=== PATIENT | female | born 1975 | race African-American/Black ===

== ENCOUNTER 2016-08-09 22:58 | Emergency (ER) | payer OTHER ==
[~2016-08-09] VITALS: Ht 160 cm; Wt 98.0 kg
[2016-08-09 23:01] VITALS: BP 121/69; PULSE 92; RESP 15; TEMP 97.8; O2SAT 100
[2016-08-10] MEDS ORDERED: NITR1SUB3 SL (00:28)
[2016-08-10] MEDS ORDERED: ASPI1TAB69 PO (00:28)
[2016-08-10 00:32] VITALS: BP 121/67; PULSE 69; RESP 18; TEMP 98; O2SAT 99
[2016-08-10 01:58] LABS: BACTERIA, URINE OCC /hpf; BLOOD, URINE NEG (NEG); COMMENT (UR) CULTURE INDICATED; CULTURE IF INDICATED CULTURE INDICATED; GLUCOSE,URINE NEG (NEG); KETONE, URINE NEG (NEG); MUCUS URINE FEW /lpf (OCC); NITRITE,URINE NEG (NEG); SQUAMOUS EPITHELIAL CELL URINE 11 /hpf (0-5); URINE COLOR YELLOW (YELLW/STRAW)
[2016-08-10] MEDS ORDERED: BACT800T5 PO (02:16)
[2016-08-10] MEDS ORDERED: HYDR-3533 PO (02:16)
[2016-08-10] MEDS ORDERED: PENI500T PO (02:16)
--- NOTE | 2016-08-10 02:16 | PD ---
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 It's constant and throbbing. The pain radiates to the left ear. She also reports vaginal itching for 3 days. She also reports the vagina to be "more moist than usual" however denies vaginal discharge specifically. Last menstruation was 3 weeks prior. She reports sexual activity with one partner without barrier contraception. She also reports bilateral leg pain with occasional paresthesias 3 months. No weakness. She is 6 para 6. PFSH Past Medical History Cardiovascular Problems: Yes (ANGINA) Diabetes: Yes (borderline diabetic) Patient Takes Glucophage: No Tetanus Vaccination: Unknown Influenza Vaccination: No ?: Not LMP: TUBAL : 7 Para: 6 Miscarriage: 1 Social History Alcohol Use: No Tobacco Use: Yes Substance Use: No Allergies-Medications (Allergen,Severity, Reaction): Coded Allergies: Ibuprofen (Verified Allergy, Severe, HIGH BP, 08/10/16) Naproxen (Verified Allergy, Intermediate, VOMITING, 08/10/16) Latex (Verified Allergy, Mild, HIVES, 08/10/16) Reported Meds & Prescriptions Reported Meds & Active Scripts Active Lortab (Hydrocodone-Acetaminophen) 5-325 Mg Tab 1-2 Tab PO Q6H PRN Penicillin V Potassium 500 Mg Tab 500 Mg PO Q8H 10 Days Bactrim DS (Sulfamethoxazole-Trimethoprim) 800-160 Mg Tab 1 Tab PO BID Reported Nitroglycerin SL (Nitroglycerin) 0.4 Mg Subl 0.4 Mg SL DIRECTED PRN ONE TABLET UNDER THE TONGUE NEEDED FOR CHEST PAIN, MAY REPEAT EVERY FIVE MINUTES FOR A TOTAL OF 3 DOSES OR CALL 911 IF NO RELIEF Aspirin 81 Mg Tabdr 81 Mg PO DAILY Review of Systems Except as stated in HPI: all other systems reviewed are Neg General / Constitutional: No: Fever Physical Exam Narrative GENERAL: 40-year-old female no acute distress SKIN: Warm and dry. HEAD: Atraumatic. Normocephalic. EYES: Pupils equal and round. No scleral icterus. No injection or drainage. ENT: No nasal bleeding or discharge. Mucous membranes pink and moist. The left lower wisdom molar is fractured and exquisitely tender. There is tenderness overlying the face in that area as well. NECK: Trachea midline. No JVD. CARDIOVASCULAR: Regular rate and rhythm. No murmur appreciated. RESPIRATORY: No accessory muscle use. Clear to auscultation. Breath sounds equal bilaterally. GASTROINTESTINAL: Abdomen soft, non-tender, nondistended. Hepatic and splenic margins not palpable. MUSCULOSKELETAL: No obvious deformities. No clubbing. No cyanosis. No edema. NEUROLOGICAL: Awake and alert. No obvious cranial nerve deficits. Motor grossly within normal limits. Normal speech. PSYCHIATRIC: Appropriate mood and affect; insight and judgment normal. Data Data Last Documented VS Vital Signs Date Time Temp Pulse Resp B/P Pulse Ox O2 Delivery O2 Flow Rate FiO2 08/10/16 00:32 98.0 69 18 121/67 99 Room Air Vital signs reviewed Orders Urinalysis - C+S If Indicated (08/10/16 01:20) Ed Urine Pregnancytest Poc (08/10/16 01:20) Urine Culture (08/10/16 01:25) Azithromycin Powd Pack (Zithromax Powd P (08/10/16 02:30) Ceftriaxone Inj (Rocephin Inj) (08/10/16 02:30) Lidocaine 1% Inj (50 Ml) (Xylocaine 1% I (08/10/16 02:30) Metronidazole (Flagyl) (08/10/16 02:30) Labs Laboratory Tests Test 08/10/16 01:25 Urine Color YELLOW Urine Turbidity HAZY Urine pH 5.0 Urine Specific [place] 1.024 Urine Protein TRACE mg/dL Urine Glucose (UA) NEG mg/dL Urine Ketones NEG mg/dL Urine Occult Blood NEG Urine Nitrite NEG Urine Bilirubin NEG Urine Urobilinogen 2.0 MG/DL Urine Leukocyte Esterase MOD Urine WBC 16 /hpf Urine Squamous Epithelial 11 /hpf Cells Urine Bacteria OCC /hpf Urine Mucus FEW /lpf Microscopic Urinalysis Comment CULTURE INDICATED MDM Medical Decision Making Medical Screen Exam Complete: Yes Emergency Medical Condition: Yes Medical Record Reviewed: Yes Differential Diagnosis IUP, UTI, ectopic , ov torsion, appendicitis, TOA, cervicitis, BV, Trichomoniasis, ov cyst, hernia, mittelschmerz, pain from menstruation Narrative Course Urinalysis is positive for cystitis. Urine is negative. Penicillin Penicillin VK for dentalgia. Bactrim for UTI. Diagnosis Primary Impression: ACUTE CYSTITIS WITHOUT HEMATURIA Additional Impressions: Dentalgia Chronic leg pain Qualified Code: M79.604 - Chronic pain of both lower extremities Referrals: Dentist 1 week Primary Care Physician 1 day Additional Instructions: You have a choice when it comes to health care, and we are glad that you chose [facility]. Hopefully, we have met your expectations on today's visit. You are welcome to return to [facility] at any time, as we are committed to meeting the health care needs of our community. Med/Other Pt SpecificInfo: Prescription(s) given Scripts Hydrocodone-Acetaminophen (Lortab)5-325 Mg Tab1-2 Tab PO Q6H PRN (PAIN SCALE 6 TO 10) #12 TAB Ref 0 Prov:Abner Acosta MD 08/10/16 Penicillin V Potassium 500 Mg [id number] Mg PO Q8H 10 Days Ref 0 Prov:Abner Acosta MD 08/10/16 Sulfamethoxazole-Trimethoprim (Bactrim DS)800-160 Mg Tab1 Tab PO BID #6 TAB Ref 0 Prov:Abner Acosta MD 08/10/16 Disposition: 01 DISCHARGE HOME Condition: Stable Abner Acosta MD Aug 10, 2016 02:16
[2016-08-10] MEDS ORDERED: LIDOCAINE HCL 1% 50 ML VIAL IM ONE (02:30)
[2016-08-10] MEDS ORDERED: ACETAMINOPHEN/HYDROcodone 325 MG/10 MG TAB PO ONE (02:30)
[2016-08-10] MEDS ORDERED: AZITHROMYCIN PWD FOR SUSP 1 GM PACKET PO ONE (02:30)
[2016-08-10] MEDS ORDERED: metroNIDAZOLE 500 MG TAB PO ONE (02:30)
[2016-08-10] MEDS ORDERED: cefTRIAXone 250 MG VIAL IM ONE (02:30)
== END 2016-08-10 02:44 | disposition home or self-care (01) ==
LOC: NEPE 22:58
DX: N30.00 Acute cystitis without hematuria (principal); M79.605 Pain in left leg; M79.604 Pain in right leg; K08.89 Other specified disorders of teeth and supporting structures; Z72.0 Tobacco use
CPT/HCPCS: 81001; 84703; 87077; 87086; 87186; 96372; 99283; J0696

== ENCOUNTER 2016-10-23 18:42 | Emergency (ER) | payer MEDICAID, OTHER ==
[~2016-10-23] VITALS: Ht 160 cm; Wt 100.0 kg
[~2016-10-23 18:42] MED LIST: ASPI1TAB69 PO; BACT800T5 PO; HYDR-3533 PO; NITR1SUB3 SL; PENI500T PO
[2016-10-23 18:43] VITALS: BP 123/76; PULSE 93; RESP 16; TEMP 98.4; O2SAT 99
--- NOTE | 2016-10-23 18:50 | PD ---
Physical Exam Time Seen by Provider: 18:49 Narrative 40 y/o female here with R leg pain which started one week ago. Denies any mechanism of injury. vital signs reviewed. Seen at triage desk. Awaiting bed placement. Data Data Last Documented VS Vital Signs Date Time Temp Pulse Resp B/P Pulse Ox O2 Delivery O2 Flow Rate FiO2 10/23/16 18:43 98.4 93 16 123/76 99 MDM Medical Record Reviewed: Yes Supervised Visit with NADINE: Sabino Granados October 23, 2016 18:50
[2016-10-23] MEDS ORDERED: MEDR4PAK PO (19:23)
--- NOTE | 2016-10-23 19:23 | PD ---
HPI Chief Complaint: Pain: Acute or Chronic Time Seen by Provider: 19:22 Travel History International Travel<30 days: No Contact w/Intl Traveler<30days: No Traveled to known affect area: No History of Present Illness HPI 40-year-old female presents to the emergency department for evaluation of right sided low back pain radiating into her hip and thigh. Patient states his been worsening over the last 2-3 days. Cannot recall any injury. States that she had has this in the past and she needed anti-inflammatory medication for this. Denies any saddle paresthesia, loss of bowel or bladder, lower extremity weakness. At rest, pain as a 6 out of 10 but exacerbates to a 10 out of 10 at times with certain movement. She has had no recent illnesses, fever, or chills. She has no other symptoms to report. PFSH Past Medical History Cardiovascular Problems: Yes (ANGINA) ?: Not : 7 Para: 6 Miscarriage: 1 Social History Alcohol Use: No Tobacco Use: Yes Substance Use: No Allergies-Medications (Allergen,Severity, Reaction): Coded Allergies: Ibuprofen (Verified Allergy, Severe, HIGH BP, 10/23/16) Naproxen (Verified Allergy, Intermediate, VOMITING, 10/23/16) Latex (Verified Allergy, Mild, HIVES, 10/23/16) Reported Meds & Prescriptions Reported Meds & Active Scripts Active Medrol Dosepak (Methylprednisolone) 4 Mg Dspk 4 Mg PO DIRECTED Per Pharmacist direction Reported Nitroglycerin SL (Nitroglycerin) 0.4 Mg Subl 0.4 Mg SL DIRECTED PRN ONE TABLET UNDER THE TONGUE NEEDED FOR CHEST PAIN, MAY REPEAT EVERY FIVE MINUTES FOR A TOTAL OF 3 DOSES OR CALL 911 IF NO RELIEF Aspirin 81 Mg Tabdr 81 Mg PO DAILY Review of Systems Except as stated in HPI: all other systems reviewed are Neg Physical Exam Narrative GENERAL: Well-nourished male patient, ambulatory with a nonantalgic gait no acute distress SKIN: Focused skin assessment warm/dry. HEAD: Atraumatic. Normocephalic. EYES: Pupils equal and round. No scleral icterus. No injection or drainage. ENT: No nasal bleeding or discharge. Mucous membranes pink and moist. NECK: Trachea midline. No JVD. CARDIOVASCULAR: Regular rate and rhythm. No murmur appreciated. RESPIRATORY: No accessory muscle use. Clear to auscultation. Breath sounds equal bilaterally. GASTROINTESTINAL: Abdomen soft, non-tender, nondistended. Hepatic and splenic margins not palpable. MUSCULOSKELETAL: No obvious deformities. No clubbing. No cyanosis. No edema. I plus strength equal bilateral lower extremities. No limitations in range of motion. Patient does have tenderness elicited palpation of the right lower back and right sacroiliac joint. No deformity. NEUROLOGICAL: Awake and alert. No obvious cranial nerve deficits. Motor grossly within normal limits. Normal speech. Data Data Last Documented VS Vital Signs Date Time Temp Pulse Resp B/P Pulse Ox O2 Delivery O2 Flow Rate FiO2 10/23/16 18:43 98.4 93 16 123/76 99 Orders Orphenadrine Inj (Norflex Inj) (10/23/16 19:30) Dexamethasone Inj (Decadron Inj) (10/23/16 19:30) MDM Medical Decision Making Medical Screen Exam Complete: Yes Emergency Medical Condition: Yes Medical Record Reviewed: Yes Differential Diagnosis Low back strain versus discogenic pain versus radiculopathy Narrative Course 40-year-old female presents to the emergency department for evaluation of low back pain radiating into her hip and thigh. Physical exam and history are consistent with sciatica versus low back strain. Patient is counseled on care. She is provided pain control of anti-inflammatory muscle relaxant. She is encouraged to follow-up with primary care provider and return immediately with any acute worsening of symptoms. Diagnosis Primary Impression: Low back pain Qualified Code: M54.41 - Right-sided low back pain with right-sided sciatica, unspecified chronicity Referrals: Primary Care Physician Patient Instructions: General Instructions, Sciatica (ED) Additional Instructions: Ice and/or warm moist heat may help to alleviate symptoms Follow-up with the primary care provider Avoid heavy lifting, bending, and twisting Return immediately with any acute worsening of symptoms Med/Other Pt SpecificInfo: Prescription(s) given Scripts Methylprednisolone Dosepak (Medrol Dosepak)4 Mg Dspk4 Mg PO DIRECTED #1 DSPK Ref 0 Per Pharmacist direction Prov:Domitila Luciano 10/23/16 Disposition: 01 DISCHARGE HOME Condition: Stable Domitila Luciano October 23, 2016 19:23
[2016-10-23] MEDS ORDERED: ORPHENADRINE INJ 60 MG/2 ML AMP IM ONE (19:30)
[2016-10-23] MEDS ORDERED: DEXAMETHASONE SOD PHOS 20 MG/5 ML VIAL IM ONE (19:30)
== END 2016-10-23 20:09 | disposition home or self-care (01) ==
LOC: NEPK 18:42
DX: M54.41 Lumbago with sciatica, right side (principal)
CPT/HCPCS: 96372; 99283; J1100; J2360

== ENCOUNTER 2016-11-14 20:43 | Emergency (ER) | payer MEDICAID ==
[~2016-11-14 20:43] MED LIST changes: -BACT800T5 PO; -HYDR-3533 PO; +MEDR4PAK PO; -PENI500T PO
[2016-11-14 20:44] VITALS: BP 140/83; PULSE 70; RESP 16; TEMP 97.8; O2SAT 100
== END 2016-11-14 21:35 | disposition left against medical advice (07) ==
LOC: NEPD 20:43
DX: R51 Headache (principal)
CPT/HCPCS: 99281

== ENCOUNTER 2017-01-05 06:04 | Emergency (ER) | payer MEDICAID ==
[2017-01-05 06:08] VITALS: BP 129/78; PULSE 71; RESP 15; TEMP 98.7; O2SAT 97
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
[2017-01-05 07:07] VITALS: BP 108/61; PULSE 67; RESP 16; TEMP 97.8; O2SAT 100
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
[2017-01-05 07:56] VITALS: BP 102/73; TEMP 97.8
== END 2017-01-05 08:04 | disposition home or self-care (01) ==
LOC: NEPC 06:04
DX: S09.90XA Unspecified injury of head, initial encounter (principal); M25.541 Pain in joints of right hand; R22.0 Localized swelling, mass and lump, head; H53.8 Other visual disturbances; Y08.02XA Assault by strike by baseball bat, initial encounter; Z72.0 Tobacco use; Z88.8 Allergy status to other drugs, medicaments and biological substances
CPT/HCPCS: 70450; 70486; 73130

== ENCOUNTER 2017-09-24 12:55 | Emergency (ER) | payer MEDICAID ==
[~2017-09-24] VITALS: Ht 157.5 cm; Wt 120.0 kg
[2017-09-24 12:59] VITALS: BP 117/70; PULSE 70; RESP 17; TEMP 97.8; O2SAT 100
[2017-09-24] MEDS ORDERED: NITR0.4S SL (13:10)
[2017-09-24 13:18] VITALS: BP 126/72; PULSE 62; RESP 18; O2SAT 95
--- NOTE | 2017-09-24 13:29 | PD ---
HPI Chief Complaint: Chest Pain Time Seen by Provider: 13:04 Travel History International Travel<30 days: No Contact w/Intl Traveler<30days: No Traveled to known affect area: No History of Present Illness HPI The patient was seen and examined in the presence of the nurse. This patient complains of chest pain. Not affected by rest or activity. No alleviating factors. No exacerbating factors. Denies injury. Location is upper sternum. Feels like an aching pressure. It has been there for 3 solid days. Symptom severity is moderate. She denies personal history of cardiac or pulmonary disease. There is been no fever. PFSH Past Medical History Cardiovascular Problems: Yes ([place], [place]) Chest Pain: Yes Diabetes: Yes (PRE DIABETIC) Diminished Hearing: No ?: Not : 7 Para: 6 Miscarriage: 1 Tubal Ligation: Yes Past Surgical History Other Surgery: Yes (TUMOR REMOVED ON HEAD ) Social History Alcohol Use: No Tobacco Use: Yes (5 cigs/daily) Substance Use: No Allergies-Medications (Allergen,Severity, Reaction): Coded Allergies: ibuprofen (Unverified Allergy, Severe, HIGH BP, 02/04/17) naproxen (Unverified Allergy, Intermediate, VOMITING, 02/04/17) latex (Unverified Allergy, Mild, HIVES, 02/04/17) Reported Meds & Prescriptions Reported Meds & Active Scripts Active Reported Nitrostat SL (Nitroglycerin) 0.4 Mg Subl 0.4 Mg SL DIRECTED PRN 1 tablet under the tongue as needed for chest pain. Repeat every 5 minutes for a total of 3 DOSES or call 911 if NO relief. Review of Systems General / Constitutional: No: Fever Eyes: No: Visual changes HENT: No: Headaches Cardiovascular: Positive: Chest Pain or Discomfort Respiratory: No: Shortness of Breath Gastrointestinal: No: Abdominal Pain Genitourinary: No: Dysuria Musculoskeletal: No: Pain Skin: No Rash Neurologic: No: Weakness Psychiatric: No: Depression Endocrine: No: Polydipsia Hematologic/Lymphatic: No: Easy Bruising Physical Exam Narrative GENERAL: Well-nourished, well-developed patient in no apparent distress. SKIN: Focused skin assessment reveals no rash and nodules. Skin is Warm and dry. HEAD: Atraumatic. Normocephalic. EYES: Pupils equal and round. No scleral icterus. No injection or drainage. ENT: No nasal bleeding or discharge. Mucous membranes pink and moist. NECK: Trachea midline. No JVD. CARDIOVASCULAR: Regular rate and rhythm. No murmur appreciated. RESPIRATORY: No accessory muscle use. Clear to auscultation. Breath sounds equal bilaterally. GASTROINTESTINAL: Abdomen soft, non-tender, nondistended. Hepatic and splenic margins not palpable. MUSCULOSKELETAL: No obvious deformities. No clubbing. No cyanosis. No edema. Readily reproducible and significant sternal tenderness to palpation NEUROLOGICAL: Awake and alert. No obvious cranial nerve deficits. Motor grossly within normal limits. Normal speech. PSYCHIATRIC: Appropriate mood and affect; insight and judgment normal. Data Data Last Documented VS Vital Signs Date Time Temp Pulse Resp B/P (MAP) Pulse Ox O2 Delivery O2 Flow Rate FiO2 09/24/17 15:00 62 16 129/69 (89) 100 Nasal Cannula 2.00 09/24/17 12:59 97.8 Orders Orders Electrocardiogram (09/24/17 13:19) Basic Metabolic Panel (Bmp) (09/24/17 13:19) Ckmb (Isoenzyme) Profile (09/24/17 13:19) Complete Blood Count With Diff (09/24/17 13:19) Troponin I (09/24/17 13:19) Chest, Single Ap (09/24/17 13:19) Ecg Monitoring (09/24/17 13:19) Iv Access Insert/Monitor (09/24/17 13:19) Oximetry (09/24/17 13:19) Sodium Chloride 0.9% Flush (Ns Flush) (09/24/17 13:30) CKMB (09/24/17 13:25) CKMB% (09/24/17 13:25) Labs Laboratory Tests Test 09/24/17 13:25 White Blood Count 7.6 TH/MM3 Red Blood Count 5.45 MIL/MM3 Hemoglobin 12.6 GM/DL Hematocrit 39.3 % Mean Corpuscular Volume 72.0 FL Mean Corpuscular Hemoglobin 23.2 PG Mean Corpuscular Hemoglobin Concent 32.2 % Red Cell Distribution Width 18.3 % Platelet Count 357 TH/MM3 Mean Platelet Volume 7.3 FL Neutrophils (%) (Auto) 45.0 % Lymphocytes (%) (Auto) 45.9 % Monocytes (%) (Auto) 5.0 % Eosinophils (%) (Auto) 2.8 % Basophils (%) (Auto) 1.3 % Neutrophils # (Auto) 3.4 TH/MM3 Lymphocytes # (Auto) 3.5 TH/MM3 Monocytes # (Auto) 0.4 TH/MM3 Eosinophils # (Auto) 0.2 TH/MM3 Basophils # (Auto) 0.1 TH/MM3 CBC Comment DIFF FINAL Differential Comment Blood Urea Nitrogen 7 MG/DL Creatinine 0.73 MG/DL Random Glucose 83 MG/DL Calcium Level 8.5 MG/DL Sodium Level 139 MEQ/L Potassium Level 3.8 MEQ/L Chloride Level 110 MEQ/L Carbon Dioxide Level 21.4 MEQ/L Anion Gap 8 MEQ/L Estimat Glomerular Filtration Rate 107 ML/MIN Total Creatine Kinase 209 U/L Creatine Kinase MB LESS THAN 0.5 NG/ML Creatine Kinase MB % 0.2 % Troponin I LESS THAN 0.02 NG/ML MDM Medical Decision Making Medical Screen Exam Complete: Yes Emergency Medical Condition: Yes Medical Record Reviewed: Yes Differential Diagnosis Differential diagnosis includes [place], angina, pericarditis, pleurisy, GERD, anxiety. Narrative Course I have reviewed the patient's electronic medical record. I have ordered a chest pain workup. She has risk factors for CAD. She is morbidly obese. However my clinical suspicion points to musculoskeletal cause. I reviewed her EKG which shows sinus rhythm without ST elevation I reviewed her chest x-ray is normal Labs sent I reviewed the labs that showed normal CBC and metabolic profile and cardiac enzymes This patient's pain is clearly musculoskeletal. Stable for outpatient follow-up Diagnosis Primary Impression: Non-cardiac chest pain Additional Instructions: The patient was advised to follow up with their physician and return if they worsen. Med/Other Pt SpecificInfo: Other Disposition: 01 DISCHARGE HOME Condition: Stable Elvin Suh MD Sep 24, 2017 13:29
[2017-09-24] MEDS ORDERED: SODIUM CHLORIDE 0.9% FLUSH 10 ML FLUSH IVF PRN (13:30)
[2017-09-24 13:40] LABS: AUTOMATED NEUTROPHIL # 3.4 TH/MM3 (1.8-7.7); BASOPHIL # 0.1 TH/MM3 (0-0.2); BASOPHIL % 1.3 % (0.0-2.0); EOSINOPHIL # 0.2 TH/MM3 (0-0.4); EOSINOPHIL % 2.8 % (0.0-4.0); HEMATOCRIT 39.3 % (35.0-46.0); HEMOGLOBIN 12.6 GM/DL (11.6-15.3); LYMPH % 45.9 % (9.0-44.0); LYMPHOCYTE # 3.5 TH/MM3 (1.0-4.8); MEAN CORPUSCULAR HEMOGLOBIN 23.2 PG (27.0-34.0); MEAN CORPUSCULAR HGB CONC 32.2 % (32.0-36.0); MEAN PLATELET VOLUME 7.3 FL (7.0-11.0); MONOCYTE # 0.4 TH/MM3 (0-0.9); PLATELET COUNT 357 TH/MM3 (150-450); RED BLOOD COUNT 5.45 MIL/MM3 (4.00-5.30); RED CELL DISTRIBUTION WIDTH 18.3 % (11.6-17.2); WHITE BLOOD COUNT 7.6 TH/MM3 (4.0-11.0)
--- NOTE | 2017-09-24 13:47 | RADRPT ---
EXAM DATE/TIME: 09/24/2017 13:23 [facility] COMPARISON: HAND RIGHT COMPLETE ([id number]), January 05, 2017, 6:55. INDICATIONS : Chest pain. MEDICAL HISTORY : None. SURGICAL HISTORY : Forehead fatty tumor removal. ENCOUNTER: Initial ACUITY: 3 days PAIN SCORE: 5/10 LOCATION: middle chest FINDINGS: A single view of the chest demonstrates the lungs to be symmetrically aerated without evidence of mas s, infiltrate or effusion. The cardiomediastinal contours are unremarkable. Osseous structures are intact. CONCLUSION: 1. No acute cardiopulmonary findings. Abner Segura MD on September 24, 2017 at 13:44 Board Certified Radiologist. This report was verified electronically.
[2017-09-24 14:02] LABS: BICARBONATE 21.4 MEQ/L (21.0-32.0); BLOOD UREA NITROGEN 7 MG/DL (7-18); CALCIUM 8.5 MG/DL (8.5-10.1); CHLORIDE 110 MEQ/L (98-107); CREATININE 0.73 MG/DL (0.50-1.00); GLOMERULAR FILTRATION RATE 107 ML/MIN (>89); GLUCOSE,RANDOM 83 MG/DL (74-106); SODIUM (NA) 139 MEQ/L (136-145)
[2017-09-24 14:06] LABS: TROPONIN I LESS THAN 0.02 NG/ML (0.02-0.05)
[2017-09-24 15:00] VITALS: BP 129/69; PULSE 62; RESP 16; O2SAT 100
--- NOTE | 2017-09-25 13:42 | EKG ---
Date Performed: 09/24/2017 Time Performed: 13:15:31 PTAGE: 41 years EKG: SINUS BRADYCARDIA BORDERLINE ECG NO PREVIOUS TRACING DOCTOR: Katharine Bolaños Interpretating Date/Time 09/25/2017 13:39:47
== END 2017-09-24 15:31 | disposition home or self-care (01) ==
LOC: NEPC 12:55
DX: R07.89 Other chest pain (principal); F17.210 Nicotine dependence, cigarettes, uncomplicated; R73.03 Prediabetes
CPT/HCPCS: 71045; 80048; 82550; 82552; 84484; 85025; 93005

== ENCOUNTER 2017-12-12 21:02 | Emergency (ER) | payer MEDICAID ==
[~2017-12-12] VITALS: Ht 160 cm; Wt 100.3 kg
[~2017-12-12 21:02] MED LIST changes: -ASPI1TAB69 PO; -MEDR4PAK PO; +NITR0.4S SL; -NITR1SUB3 SL
[2017-12-12 21:14] VITALS: BP 125/69; PULSE 76; RESP 15; TEMP 99; O2SAT 100
--- NOTE | 2017-12-12 21:58 | PD ---
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 She states it is like cottage cheese. She has not used any of the [id number] products yet. She states that she has some irritation and burning in the vagina. She has had some urinary frequency but no real dysuria. She denies any fever chills. No nausea or vomiting. No abdominal pain. No back pain. She has been eating and drinking. Symptoms are moderate. No alleviating or exacerbating activity. Denies . History of tubal ligation. 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 ) Social History Alcohol Use: No Tobacco Use: Yes (5 cigs/daily) Substance Use: No Allergies-Medications (Allergen,Severity, Reaction): Coded Allergies: ibuprofen (Unverified Allergy, Severe, HIGH BP, 12/12/17) naproxen (Unverified Allergy, Intermediate, VOMITING, 12/12/17) latex (Unverified Allergy, Mild, HIVES, 12/12/17) Reported Meds & Prescriptions Reported Meds & Active Scripts Active Diflucan (Fluconazole) 150 Mg Tab 150 Mg PO ONCE Flagyl (Metronidazole) 500 Mg Tab 500 Mg PO TID 5 Days Reported Aspirin Low Dose (Aspirin) 81 Mg Chew 81 Mg CHEW DAILY Nitrostat SL (Nitroglycerin) 0.4 Mg Subl 0.4 Mg SL DIRECTED PRN 1 tablet under the tongue as needed for chest pain. Repeat every 5 minutes for a total of 3 DOSES or call 911 if NO relief. Review of Systems General / Constitutional: No: Fever Eyes: No: Visual changes HENT: Positive: Headaches Cardiovascular: No: Chest Pain or Discomfort Respiratory: No: Shortness of Breath Gastrointestinal: Positive: Diarrhea, No: Nausea, Vomiting, Abdominal Pain Genitourinary: Positive: Urgency, Frequency, Discharge, No: Dysuria, Pelvic Pain, Vaginal Bleeding Musculoskeletal: No: Myalgias, Limited ROM, Pain Skin: No Rash Neurologic: No: Weakness Psychiatric: No: Depression Endocrine: No: Polydipsia Hematologic/Lymphatic: No: Easy Bruising Physical Exam Narrative GENERAL: Well-developed, well-nourished in no apparent distress. Nontoxic appearing. HEAD: Normocephalic, atraumatic. EYES: Pupils equal round and reactive. Extraocular motions intact. No scleral icterus. No injection or drainage. ENT: Nose clear. Throat without erythema, tonsillar hypertrophy or exudate. Uvula midline. Airway patent. NECK: Trachea midline. Supple, nontender, moves head freely. No central bony tenderness or spasm. CARDIOVASCULAR: Regular rate and rhythm without murmurs, gallops, or rubs. RESPIRATORY: Clear to auscultation. Breath sounds equal bilaterally. No wheezes , rales, or rhonchi. GASTROINTESTINAL: Abdomen soft, non-tender, nondistended. No hepato-splenomegaly , or palpable masses. No guarding. EXTREMITIES: No clubbing, cyanosis, or edema. No joint tenderness. BACK: Nontender without deformity. No flank tenderness. NEUROLOGICAL: Awake, alert and oriented x 3 .Cranial nerves grossly intact. Motor and sensory grossly within normal limits. Normal speech. Data Data Last Documented VS Vital Signs Date Time Temp Pulse Resp B/P (MAP) Pulse Ox O2 Delivery O2 Flow Rate FiO2 12/12/17 21:14 99.0 76 15 125/69 (87) 100 Orders Orders Gc And Chlamydia Pcr (12/12/17 21:54) Wet Prep Profile (12/12/17 21:54) Ua Includes Microscopic (12/12/17 21:54) Azithromycin Powd Pack (Zithromax Powd P (12/12/17 22:00) Ceftriaxone Inj (Rocephin Inj) (12/12/17 22:00) Lidocaine 1% Inj (50 Ml) (Xylocaine 1% I (12/12/17 22:00) Ed Urine Pregnancytest Poc (12/12/17 21:54) Ed Discharge Order (12/12/17 23:21) Labs Laboratory Tests Test 12/12/17 22:00 12/12/17 22:15 Urine Color YELLOW Urine Turbidity CLOUDY Urine pH 6.0 Urine Specific [place] 1.028 Urine Protein NEG mg/dL Urine Glucose (UA) NEG mg/dL Urine Ketones TRACE mg/dL Urine Occult Blood NEG Urine Nitrite NEG Urine Bilirubin NEG Urine Urobilinogen 4.0 OR GREATER mg/dL Urine Leukocyte Esterase SMALL Urine RBC 3 /hpf Urine WBC 8 /hpf Urine Squamous Epithelial Cells 27 /hpf Urine Bacteria RARE /hpf Urine Mucus FEW /lpf Clue Cells (Wet Prep) PRESENT Vaginal Trichomonas (Wet Prep) NONE SEEN Vaginal Yeast (Wet Prep) NONE SEEN MDM Medical Decision Making Medical Screen Exam Complete: Yes Emergency Medical Condition: Yes Medical Record Reviewed: Yes Interpretation(s) HCG is negative. Laboratory Tests Test 12/12/17 22:00 12/12/17 22:15 Urine Color YELLOW Urine Turbidity CLOUDY Urine pH 6.0 Urine Specific [place] 1.028 Urine Protein NEG mg/dL Urine Glucose (UA) NEG mg/dL Urine Ketones TRACE mg/dL Urine Occult Blood NEG Urine Nitrite NEG Urine Bilirubin NEG Urine Urobilinogen 4.0 OR GREATER mg/dL Urine Leukocyte Esterase SMALL Urine RBC 3 /hpf Urine WBC 8 /hpf Urine Squamous Epithelial Cells 27 /hpf Urine Bacteria RARE /hpf Urine Mucus FEW /lpf Clue Cells (Wet Prep) PRESENT Vaginal Trichomonas (Wet Prep) NONE SEEN Vaginal Yeast (Wet Prep) NONE SEEN Differential Diagnosis Differential diagnosis: Pyelonephritis, UTI, vaginitis GC chlamydia, yeast vaginitis, bacterial vaginosis Narrative Course Patient will obtain a urinalysis. Will perform a hCG, pelvic exam. Patient was given Rocephin 250 mg IM and Zithromax 1 g p.o. Patient has clue cells on her wet prep. No trichomonas or yeast. Patient will be treated for bacterial vaginosis. She will be given Flagyl p.o. and a one-time dose of Diflucan. Procedures Procedure Narrative Pelvic exam: Nurse Juli is present and assisting with the procedure. Normal external genitalia. Speculum exam reveals a large amount of thick white curd type discharge. Cultures obtained. Diagnosis Primary Impression: Bacterial vaginosis Patient Instructions: General Instructions Additional Instructions: Rest. Increase fluids. Medications as directed. 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 Return to the ER for any problems. Med/Other Pt SpecificInfo: Prescription(s) given Scripts Fluconazole (Diflucan) 150 Mg Tab 150 MG PO ONCE for Infection, #1 TAB 0 Refills Prov: Janis Juarez MD 12/12/17 Metronidazole (Flagyl) 500 Mg Tab 500 MG PO TID for Infection for 5 Days, TAB 0 Refills Prov: Janis Juarez MD 12/12/17 Disposition: 01 DISCHARGE HOME Condition: Stable Gabo Jacinto Dec 12, 2017 21:58
[2017-12-12] MEDS ORDERED: LIDOCAINE HCL 1% 50 ML VIAL IM ONE (22:00)
[2017-12-12] MEDS ORDERED: AZITHROMYCIN PWD FOR SUSP 1 GM PACKET PO ONE (22:00)
[2017-12-12] MEDS ORDERED: cefTRIAXone 250 MG VIAL IM ONE (22:00)
[2017-12-12] MEDS ORDERED: ASPI81CH6 CHEW (22:04)
[2017-12-12 22:53] LABS: BACTERIA, URINE RARE /hpf; BILIRUBIN, URINE NEG (NEG); BLOOD, URINE NEG (NEG); GLUCOSE,URINE NEG (NEG); KETONE, URINE TRACE mg/dL (NEG); MUCUS URINE FEW /lpf (OCC); NITRITE,URINE NEG (NEG); SQUAMOUS EPITHELIAL CELL URINE 27 /hpf (0-5); URINE COLOR YELLOW (YELLW/STRAW); URINE LEUKOCYTE ESTERASE SMALL (NEG)
[2017-12-12] MEDS ORDERED: DIFL150T PO (23:22)
[2017-12-12] MEDS ORDERED: METR-1 PO (23:22)
== END 2017-12-13 | disposition home or self-care (01) ==
LOC: NEPD 21:02
DX: N76.0 Acute vaginitis (principal); B96.89 Other specified bacterial agents as the cause of diseases classified elsewhere; F17.210 Nicotine dependence, cigarettes, uncomplicated
CPT/HCPCS: 81001; 84703; 87210; 87491; 87591; 96372; 99284; J0696